=== PATIENT | male | born 1965 | race Caucasian/White ===

== ENCOUNTER 2018-01-13 16:15 | Inpatient (IN) ==
[2018-01-14] MEDS: CHLORHEXIDINE 4% SOLN 118 ML BOTTLE TOP SCH ×2 (03:07→18:17)
[2018-01-14] MEDS: CHLORHEXIDINE 0.12% ORAL RINSE 60 ML BOTTLE SWISH/SPIT SCH ×3 (03:08→22:02)
[2018-01-14 07:38] LABS: Basophils # 0.1 10*3/uL (0.0-0.2); Basophils % 0.5 % (0.0-0.8); Eosinophils # 0.1 10*3/uL (0.0-0.87); Eosinophils % 1.4 % (0.00-10.9); Hematocrit 43.6 VOL% (42.0-52.0); Hemoglobin 14.3 GM/DL (14.0-18.0); Immature Granulocytes % 0.4 %; Immature Granulocytes Absolute 0.04 #; Lymphocytes % 20.1 % (21.2-54.2); Mean Corpuscular HGB Conc 32.8 GM/DL (32-36); Mean Corpuscular Hemoglobin 27 PG (27-34); Mean Corpuscular Volume 82.7 FL (87-102); Mean Platelet Volume 9.2 FL (9.6-12.0); Monocytes # 0.8 10*3/uL (0.11-0.8); Monocytes % 7.6 % (1.7-12.7); Neutrophils # 6.9 10*3/uL (1.4-7.4); Platelet Count 233 T/CUMM (130-400); Red Blood Count 5.27 MC/CUMM (3.8-5.5); Red Cell Distribution Width 13.4 % (9.3-17.3); White Blood Count 9.8 T/CUMM (4-12)
[2018-01-14 08:06] LABS: Calcium 8.5 MG/DL (8.5-10.1); Osmolality,Calculated 279.3 MOS/KG (273-304)
[2018-01-14] MEDS ORDERED: ENOXAPARIN 40 MG/0.4 ML SYRINGE ONE (08:24)
[2018-01-14] MEDS: ENOXAPARIN 40 MG/0.4 ML SYRINGE SUBCUT SCH (09:32)
[2018-01-15] MEDS: CHLORHEXIDINE 4% SOLN 118 ML BOTTLE TOP SCH ×2 (04:00→08:57)
[2018-01-15] MEDS ORDERED: NITROGLYCERIN SL 0.4 MG TABLET SL ONE ×2 (04:38→07:24)
[2018-01-15] MEDS ORDERED: MORPHINE 4 MG/1 ML VIAL IV PRN (04:49)
[2018-01-15] MEDS ORDERED: VANCOMYCIN 1,000 MG VIAL ONE (05:16)
[2018-01-15] MEDS ORDERED: TISSUE ADHESIVE 1 EACH APPLICATOR TOP ONE (05:16)
[2018-01-15] MEDS ORDERED: PAPAVERINE 60 MG/2 ML VIAL ONE (05:16)
[2018-01-15] MEDS ORDERED: FAMOTIDINE 20 MG TABLET PO ONE (05:30)
[2018-01-15] MEDS ORDERED: DIAZEPAM 5 MG TABLET PO ONE (05:30)
[2018-01-15] MEDS ORDERED: CEFUROXIME INJ 1,500 MG in SYRINGE 1 EACH IV ONE (07:26)
[2018-01-15 08:08] LABS: ABG Base Excess -0.1 MMOL/L (-2.5-2.5); ABG HCO3 24.6 MMOL/L (20-26); ABG PCO2 40.4 MM HG (35-48); ABG PH 7.402 (7.35-7.45); ABG PO2 78.2 MM HG (80-95); ABG TCO2 25.8 MMOL/L (23-27)
[2018-01-15] MEDS: CHLORHEXIDINE 0.12% ORAL RINSE 60 ML BOTTLE SWISH/SPIT SCH ×2 (09:40→23:03)
[2018-01-15] MEDS ORDERED: MIDAZOLAM 10 MG/2 ML VIAL ONE ×2 (10:13)
[2018-01-15] MEDS ORDERED: SUFentanil 250 MCG/5 ML AMP ONE ×2 (10:13→15:20)
[2018-01-15] MEDS ORDERED: TRANEXAMIC ACID 1,000 MG/10 ML VIAL ONE (10:14)
[2018-01-15] MEDS: SODIUM CHLORIDE 0.9% 1,000 ML IV SCH (10:18)
[2018-01-15] MEDS ORDERED: NITROGLYCERIN DRIP 50 MG/250 ML BOTTLE IV ONE ×2 (11:17→15:14)
[2018-01-15] MEDS ORDERED: ALBUMIN 5% 12.5 GM/250 ML VIAL IV ONE (11:18)
[2018-01-15] MEDS ORDERED: CALCIUM CHLORIDE 1,000 MG/10 ML SYRINGE IV ONE (11:19)
[2018-01-15] MEDS ORDERED: PHENYLEPHRINE DRIP 40 MG/250 ML PREMIX IV ONE (11:19)
[2018-01-15] MEDS ORDERED: POTASSIUM CHLORIDE RIDER 100 ML IV ONE (11:19)
[2018-01-15 11:20] LABS: ABG Base Excess 0.6 MMOL/L (-2.5-2.5); ABG Oxygen Saturation 99.5 % (95-100); ABG PCO2 49.6 MM HG (35-48); ABG PH 7.346 (7.35-7.45); ABG TCO2 23.5 MMOL/L (23-27); Glucose Heart Surgery 99 MG/DL (74-106); Hematocrit Heart Surgery 44.2 PERCENT (42-52); Hemoglobin Heart Surgery 14.4 G/DL (14.0-18.0); Ionized Calcium Arterial 1.19 MMOL/L (1.21-1.46); PCO2 Patient Temp Arterial 49.6 MMHG; PH Patient Temp Arterial 7.346; Patient Temperature 37 CELCIUS; Potassium Heart/CVR 4.1 MMOL/L (3.5-5.1); Sodium Heart/CVR 138 MMOL/L (135-145)
[2018-01-15] MEDS ORDERED: SODIUM BICARBONATE 50 MEQ/50 ML SYRINGE IV ONE ×2 (11:20→14:21)
[2018-01-15 11:55] LABS: Apearance,Urine CLEAR (Clear); Bilirubin,Urine Negative (Negative); Blood, Urine Small mg/dL (Negative); Glucose,Urine (UA) Negative (Negative); Ketones,Urine Negative (Negative); Mucus,Urine Occasional /LPF (Occasional); Nitrite,Urine Negative (Negative); Protein,Urine Negative; RBC,Urine 3 /HPF (0-4); Urine Color Yellow (Yellow); Urine Specific Gravity 1.016 (1.001-1.035); Urine Urobilinogen < 2.0 EU/DL (0.2-1.0); WBC,Urine <1 /HPF (0-6)
[2018-01-15 13:02] LABS: Hematocrit Heart Surgery 31.1 PERCENT (42-52); Hemoglobin Heart Surgery 10.1 G/DL (14.0-18.0); PCO2 Patient Temp Venous 46.4 MM HG; PH Patient Temp Venous 7.375; PO2 Patient Temp Venous 40.9 MM HG; Potassium Heart/CVR 4.8 MMOL/L (3.5-5.1); VBG Base Excess 1.6 MEQ/L (0-4); VBG HCO3 25.5 MEQ/L (24-28); VBG Oxygen Saturation 76.9 %; VBG PCO2 48.7 MMHG (41-51); VBG PH 7.361; VBG PO2 43.9 MMHG (17-40)
[2018-01-15 13:36] LABS: Hemoglobin Heart Surgery 11.2 G/DL (14.0-18.0); PCO2 Patient Temp Venous 36.7 MM HG; PH Patient Temp Venous 7.451; PO2 Patient Temp Venous 46.9 MM HG; Potassium Heart/CVR 4.8 MMOL/L (3.5-5.1); VBG Base Excess 1.2 MEQ/L (0-4); VBG PCO2 36.7 MMHG (41-51); VBG PH 7.451; VBG PO2 46.9 MMHG (17-40)
[2018-01-15] MEDS ORDERED: THROMBIN TOPICAL (RECOMBINANT) 5,000 UNIT VIAL TOP ONE (13:56)
[2018-01-15] MEDS: ENOXAPARIN 40 MG/0.4 ML SYRINGE SUBCUT SCH (14:01)
[2018-01-15 14:17] LABS: ABG HCO3 23.6 MMOL/L (20-26); ABG Oxygen Saturation 99.6 % (95-100); ABG PCO2 42.3 MM HG (35-48); ABG PH 7.368 (7.35-7.45); ABG TCO2 21.8 MMOL/L (23-27); Glucose Heart Surgery 150 MG/DL (74-106); Hematocrit Heart Surgery 35.3 PERCENT (42-52); Hemoglobin Heart Surgery 11.5 G/DL (14.0-18.0); Ionized Calcium Arterial 1.36 MMOL/L (1.21-1.46); PCO2 Patient Temp Arterial 42.3 MMHG; PH Patient Temp Arterial 7.368; Patient Temperature 37 CELCIUS; Potassium Heart/CVR 4.2 MMOL/L (3.5-5.1); Sodium Heart/CVR 137 MMOL/L (135-145)
[2018-01-15] MEDS ORDERED: DEXTROSE 5% KCL 20 MEQ 20 MEQ/1,000 ML BAG IV ONE (14:21)
[2018-01-15] MEDS ORDERED: HEPARIN 10,000 UNIT/10 ML VIAL ONE (14:21)
[2018-01-15] MEDS ORDERED: MAGNESIUM SULFATE 1 GM/2 ML VIAL ONE (14:21)
[2018-01-15] MEDS ORDERED: ALBUMIN 25% 25 GM/100 ML VIAL IV ONE (14:21)
[2018-01-15] MEDS ORDERED: PROTAMINE SULFATE 250 MG/25 ML VIAL IV ONE (14:21)
[2018-01-15] MEDS ORDERED: methylPREDNISolone SOD SUC 1,000 MG/8 ML VIAL ONE (14:22)
[2018-01-15] MEDS ORDERED: FUROSEMIDE 20 MG/2 ML VIAL ONE (14:22)
[2018-01-15] MEDS ORDERED: MANNITOL 12.5 GM/50 ML VIAL IV ONE (14:22)
[2018-01-15] MEDS ORDERED: ePHEDrine 50 MG/ML AMP ONE (15:13)
[2018-01-15] MEDS ORDERED: CALCIUM CHLORIDE 1,000 MG/10 ML VIAL IV ONE (15:13)
[2018-01-15] MEDS ORDERED: SEVOFLURANE 1 UNIT/15 MINUTE INH ONE (15:13)
[2018-01-15] MEDS ORDERED: ESMOLOL 100 MG/10 ML VIAL IV ONE (15:14)
[2018-01-15] MEDS ORDERED: ETOMIDATE 40 MG/20 ML VIAL IV ONE (15:14)
[2018-01-15] MEDS ORDERED: SODIUM CHLORIDE 0.9% 1,000 ML IV ONE (15:14)
[2018-01-15] MEDS ORDERED: PHENYLEPHRINE 10 MG/1 ML VIAL IV ONE (15:14)
[2018-01-15] MEDS ORDERED: LACTATED RINGERS 1,000 ML IV ONE ×3 (15:14→18:00)
[2018-01-15] MEDS ORDERED: SODIUM CHLORIDE 0.9% 500 ML IV ONE (15:14)
[2018-01-15] MEDS ORDERED: VECURONIUM 10 MG VIAL IV ONE (15:14)
[2018-01-15] MEDS ORDERED: SODIUM CHLORIDE 0.9% 100 ML IV ONE (15:14)
[2018-01-15] MEDS ORDERED: ACETAMINOPHEN 650 MG SUPP RECTAL PRN (15:28)
[2018-01-15] MEDS ORDERED: CHLORHEXIDINE 4% SOLN 118 ML BOTTLE TOP PRN (15:28)
[2018-01-15] MEDS ORDERED: CALCIUM CHLORIDE 1,000 MG/10 ML SYRINGE IV PRN (15:28)
[2018-01-15] MEDS ORDERED: SODIUM CHLORIDE 0.9% 250 ML IV PRN (15:28)
[2018-01-15] MEDS ORDERED: DEXTROSE 50% 25 GM/50 ML VIAL IV PRN ×2 (15:28)
[2018-01-15] MEDS ORDERED: POTASSIUM CHLORIDE RIDER 10 MEQ in PREMIX 1 EACH IV PRN (15:28)
[2018-01-15] MEDS ORDERED: MIDAZOLAM 2 MG/2 ML VIAL IV PRN (15:28)
[2018-01-15] MEDS ORDERED: INSULIN REGULAR 100 UNIT/ML IV PRN (15:28)
[2018-01-15] MEDS ORDERED: POTASSIUM CHLORIDE RIDER 20 MEQ in PREMIX 1 EACH IV PRN (15:28)
[2018-01-15] MEDS ORDERED: MAGNESIUM SULF RIDER 2 GM in PREMIX 1 EACH IV PRN (15:28)
[2018-01-15] MEDS ORDERED: MAGNESIUM SULF RIDER 4 GM in PREMIX 1 EACH IV PRN (15:28)
[2018-01-15] MEDS ORDERED: SODIUM CHLORIDE 0.45% 1,000 ML IV SCH (15:30)
[2018-01-15] MEDS ORDERED: INSULIN REGULAR DRIP 100 ML IV SCH (15:30)
[2018-01-15] MEDS: ALBUMIN 5% 12.5 GM in PREMIX 1 EACH IV PRN ×3 (15:50→18:27)
[2018-01-15 16:03] LABS: ABG Base Excess -1.1 MMOL/L (-2.5-2.5); ABG HCO3 23.4 MMOL/L (20-26); ABG Oxygen Saturation 94.9 % (95-100); ABG PCO2 46.9 MM HG (35-48); ABG PH 7.338 (7.35-7.45); ABG PO2 79.4 MM HG (80-95); ABG TCO2 22.2 MMOL/L (23-27); Glucose Heart Surgery 131 MG/DL (74-106); Hematocrit Heart Surgery 39.8 PERCENT (42-52); Potassium Heart/CVR 4.5 MMOL/L (3.5-5.1)
[2018-01-15 16:04] LABS: VBG HCO3 24.8 MEQ/L (24-28); VBG Oxygen Saturation 66.1 %; VBG PCO2 50.9 MMHG (41-51); VBG PH 7.306; VBG PO2 43.2 MMHG (17-40)
[2018-01-15 16:05] LABS: Basophils # 0.1 10*3/uL (0.0-0.2); Basophils % 0.3 % (0.0-0.8); Eosinophils # 0.1 10*3/uL (0.0-0.87); Eosinophils % 0.5 % (0.00-10.9); Hematocrit 39.5 VOL% (42.0-52.0); Hemoglobin 12.8 GM/DL (14.0-18.0); Immature Granulocytes % 0.9 %; Immature Granulocytes Absolute 0.13 #; Lymphocytes # 1.2 10*3/uL (1.4-4.0); Lymphocytes % 8.1 % (21.2-54.2); Mean Corpuscular HGB Conc 32.4 GM/DL (32-36); Mean Corpuscular Hemoglobin 27 PG (27-34); Mean Corpuscular Volume 84.2 FL (87-102); Mean Platelet Volume 9.1 FL (9.6-12.0); Monocytes # 0.5 10*3/uL (0.11-0.8); Monocytes % 3.1 % (1.7-12.7); Neutrophils # 12.8 10*3/uL (1.4-7.4); Neutrophils % 87.1 % (38.7-73.9); Platelet Count 233 T/CUMM (130-400); Red Blood Count 4.69 MC/CUMM (3.8-5.5); Red Cell Distribution Width 13.6 % (9.3-17.3); White Blood Count 14.7 T/CUMM (4-12)
[2018-01-15 16:15] LABS: PT Patient Result 10.5 SECS; Partial Thromboplastin Time 27.3 SECS (0-40)
[2018-01-15 16:22] LABS: Lactic Acid 1.6 MMOL/L (0.4-2.0)
[2018-01-15 16:28] LABS: Calcium 8.7 MG/DL (8.5-10.1); Potassium 4.7 MMOL/L (3.5-5.1)
[2018-01-15] MEDS: SODIUM CHLORIDE 0.45% 1,000 ML IV SCH (16:40)
[2018-01-15] MEDS ORDERED: PHENYLEPHRINE DRIP 40 MG/250 ML PREMIX IV PRN (16:43)
[2018-01-15] MEDS ORDERED: ASPIRIN 300 MG SUPP RECTAL ONE (19:09)
[2018-01-15] MEDS: MORPHINE 4 MG/1 ML VIAL IV PRN ×2 (19:12→23:33)
[2018-01-15 22:00] LABS: ABG Base Excess -1.2 MMOL/L (-2.5-2.5); ABG HCO3 23.3 MMOL/L (20-26); ABG Oxygen Saturation 95.4 % (95-100); ABG PCO2 47.4 MM HG (35-48); ABG PH 7.332 (7.35-7.45); ABG PO2 82.1 MM HG (80-95); ABG TCO2 22.3 MMOL/L (23-27); Glucose Heart Surgery 149 MG/DL (74-106); Hemoglobin Heart Surgery 12.4 G/DL (14.0-18.0); Potassium Heart/CVR 4.3 MMOL/L (3.5-5.1)
[2018-01-15] MEDS: ONDANSETRON 4 MG/2 ML VIAL IV PRN (23:32)
[2018-01-15] MEDS: CEFUROXIME INJ 1,500 MG in SYRINGE 1 EACH IV SCH (23:44)
[2018-01-16 03:52] LABS: Basophils % 0.1 % (0.0-0.8); Hematocrit 36.6 VOL% (42.0-52.0); Hemoglobin 12.3 GM/DL (14.0-18.0); Immature Granulocytes % 0.5 %; Immature Granulocytes Absolute 0.09 #; Lymphocytes # 0.7 10*3/uL (1.4-4.0); Lymphocytes % 3.8 % (21.2-54.2); Mean Corpuscular HGB Conc 33.6 GM/DL (32-36); Mean Corpuscular Hemoglobin 28 PG (27-34); Mean Corpuscular Volume 82.8 FL (87-102); Mean Platelet Volume 9.1 FL (9.6-12.0); Monocytes # 0.6 10*3/uL (0.11-0.8); Monocytes % 3.5 % (1.7-12.7); Neutrophils % 92.1 % (38.7-73.9); Platelet Count 222 T/CUMM (130-400); Red Blood Count 4.42 MC/CUMM (3.8-5.5); Red Cell Distribution Width 13.7 % (9.3-17.3); White Blood Count 17.4 T/CUMM (4-12)
[2018-01-16] MEDS: MORPHINE 4 MG/1 ML VIAL IV PRN ×4 (04:09→23:49)
[2018-01-16 04:12] LABS: Calcium 8.4 MG/DL (8.5-10.1); Osmolality,Calculated 283.1 MOS/KG (273-304); Potassium 4.5 MMOL/L (3.5-5.1)
[2018-01-16 05:04] LABS: Band Neutrophils 2 % (0-10); Lymphocytes 1 % (20-55); Platelet Estimate Normal; Segmented Neutrophils 95 % (50-85); Total Cells Counted 100
[2018-01-16] MEDS: SODIUM CHLORIDE 0.45% 1,000 ML IV SCH (06:18)
[2018-01-16] MEDS: MORPHINE 10 MG/1 ML VIAL IV PRN ×3 (07:13→12:17)
[2018-01-16] MEDS ORDERED: GLUCAGON 1 MG VIAL IM PRN (07:25)
[2018-01-16] MEDS ORDERED: DEXTROSE 50% 25 GM/50 ML VIAL IV PRN (07:25)
[2018-01-16] MEDS ORDERED: INSULIN REGULAR 100 UNIT/ML SUBCUT SCH (07:30)
[2018-01-16] MEDS ORDERED: FUROSEMIDE 40 MG/4 ML VIAL IV ONE (07:49)
[2018-01-16] MEDS: ALBUTEROL/IPRATROPIUM 3 ML NEB RESP TX PRN ×3 (08:05→20:33)
[2018-01-16] MEDS: INSULIN REGULAR 100 UNIT/ML SUBCUT SCH ×5 (08:25→23:48)
[2018-01-16] MEDS: CLOPIDOGREL 75 MG TABLET PO SCH (09:21)
[2018-01-16] MEDS: CARVEDILOL 3.125 MG TABLET PO SCH ×2 (09:21→20:08)
[2018-01-16] MEDS: CHLORHEXIDINE 0.12% ORAL RINSE 60 ML BOTTLE SWISH/SPIT SCH ×2 (09:23→21:00)
[2018-01-16] MEDS: PANTOPRAZOLE 40 MG VIAL IV SCH (09:23)
[2018-01-16] MEDS: CEFUROXIME INJ 1,500 MG in SYRINGE 1 EACH IV SCH ×2 (11:45→22:55)
[2018-01-16] MEDS ORDERED: GABAPENTIN 300 MG CAPSULE PO PRN (15:02)
[2018-01-16] MEDS: ATORVASTATIN 40 MG TABLET PO SCH ×2 (15:20→20:08)
[2018-01-16] MEDS: ASPIRIN EC 325 MG TABLET PO SCH (15:20)
[2018-01-16] MEDS: FUROSEMIDE 40 MG TABLET PO SCH (15:20)
[2018-01-17] MEDS: MORPHINE 4 MG/1 ML VIAL IV PRN ×3 (03:29→08:34)
[2018-01-17] MEDS: INSULIN REGULAR 100 UNIT/ML SUBCUT SCH ×5 (04:27→22:27)
[2018-01-17 06:54] LABS: Basophils % 0.1 % (0.0-0.8); Eosinophils % 0.1 % (0.00-10.9); Hematocrit 37.8 VOL% (42.0-52.0); Hemoglobin 12.6 GM/DL (14.0-18.0); Immature Granulocytes % 0.6 %; Lymphocytes # 1.5 10*3/uL (1.4-4.0); Lymphocytes % 8.8 % (21.2-54.2); Mean Corpuscular HGB Conc 33.3 GM/DL (32-36); Mean Corpuscular Hemoglobin 27 PG (27-34); Mean Corpuscular Volume 82.2 FL (87-102); Mean Platelet Volume 9.6 FL (9.6-12.0); Monocytes % 6.2 % (1.7-12.7); Neutrophils # 14.2 10*3/uL (1.4-7.4); Neutrophils % 84.2 % (38.7-73.9); Platelet Count 214 T/CUMM (130-400); Red Cell Distribution Width 13.7 % (9.3-17.3); White Blood Count 16.8 T/CUMM (4-12)
[2018-01-17 07:23] LABS: Calcium 8.6 MG/DL (8.5-10.1); Osmolality,Calculated 277.5 MOS/KG (273-304); Potassium 3.9 MMOL/L (3.5-5.1)
[2018-01-17] MEDS: SODIUM CHLORIDE 0.9% 1,000 ML IV SCH (07:37)
[2018-01-17] MEDS: ASPIRIN EC 325 MG TABLET PO SCH (08:37)
[2018-01-17] MEDS: FUROSEMIDE 40 MG TABLET PO SCH (08:37)
[2018-01-17] MEDS: CHLORHEXIDINE 0.12% ORAL RINSE 60 ML BOTTLE SWISH/SPIT SCH ×2 (08:37→22:32)
[2018-01-17] MEDS: CARVEDILOL 3.125 MG TABLET PO SCH ×2 (08:37→22:31)
[2018-01-17] MEDS: PANTOPRAZOLE 40 MG VIAL IV SCH (08:38)
[2018-01-17] MEDS: CLOPIDOGREL 75 MG TABLET PO SCH (08:38)
[2018-01-17] MEDS ORDERED: CLORAZEPATE 3.75 MG TABLET PO PRN (10:01)
[2018-01-17] MEDS ORDERED: FUROSEMIDE 40 MG/4 ML VIAL IV ONE (10:07)
[2018-01-17] MEDS: ATORVASTATIN 40 MG TABLET PO SCH (22:32)
[2018-01-18] MEDS: INSULIN REGULAR 100 UNIT/ML SUBCUT SCH ×4 (01:20→12:17)
[2018-01-18] MEDS: ONDANSETRON 4 MG/2 ML VIAL IV PRN (05:43)
[2018-01-18 05:53] LABS: Basophils # 0.1 10*3/uL (0.0-0.2); Basophils % 0.4 % (0.0-0.8); Eosinophils # 0.1 10*3/uL (0.0-0.87); Eosinophils % 0.4 % (0.00-10.9); Hematocrit 39.7 VOL% (42.0-52.0); Hemoglobin 13.4 GM/DL (14.0-18.0); Immature Granulocytes % 0.4 %; Immature Granulocytes Absolute 0.06 #; Lymphocytes # 2.3 10*3/uL (1.4-4.0); Lymphocytes % 16.7 % (21.2-54.2); Mean Corpuscular HGB Conc 33.8 GM/DL (32-36); Mean Corpuscular Hemoglobin 27 PG (27-34); Mean Platelet Volume 9.1 FL (9.6-12.0); Monocytes % 7.5 % (1.7-12.7); Neutrophils # 10.2 10*3/uL (1.4-7.4); Neutrophils % 74.6 % (38.7-73.9); Platelet Count 251 T/CUMM (130-400); Red Cell Distribution Width 13.5 % (9.3-17.3); White Blood Count 13.7 T/CUMM (4-12)
[2018-01-18 06:08] LABS: Osmolality,Calculated 277.5 MOS/KG (273-304); Potassium 3.6 MMOL/L (3.5-5.1)
[2018-01-18] MEDS: PANTOPRAZOLE 40 MG VIAL IV SCH (09:19)
[2018-01-18] MEDS: CLOPIDOGREL 75 MG TABLET PO SCH (09:19)
[2018-01-18] MEDS: FUROSEMIDE 40 MG TABLET PO SCH (09:19)
[2018-01-18] MEDS: ASPIRIN EC 325 MG TABLET PO SCH (09:20)
[2018-01-18] MEDS: CARVEDILOL 3.125 MG TABLET PO SCH (09:20)
[2018-01-18] MEDS: CHLORHEXIDINE 0.12% ORAL RINSE 60 ML BOTTLE SWISH/SPIT SCH (09:25)
[2018-01-18 11:27] VITALS: BP 117/80
[2018-01-18] MEDS ORDERED: CARVEDILOL 6.25 MG TABLET PO SCH (21:00)
== END 2018-01-18 16:18 | disposition home health service (06) | DRG 236 ==
LOC: N.TELES 18:43 → N.CVR 01-15 15:29 → N.ICU 01-16 12:38 → N.TELES 01-16 14:04
PROVIDERS: ADMIT Thoracic Surgery (Cardiothoracic Vascular Surgery); ATTEND Thoracic Surgery (Cardiothoracic Vascular Surgery)